=== PATIENT | female | born 1985 | race American Indian/Alaskan Native ===

== ENCOUNTER 2016-07-27 07:22 | Emergency (ER) | payer MEDICAID ==
[2016-07-27 07:44] VITALS: BP 116/72
--- NOTE | 2016-07-27 08:35 | Emergency Department Report ---
HPI - General Chief Complaint: Sore Throat Time Seen by Provider: 07/27/16 08:22 - HPI HPI: Patient here complaining of sore throat 2 days. Patient state pain.. Denies any drooling. Denies any fever or cough. She says she was seen at urgent care for the same thing last week and was placed on antibiotic. She said it didn't help her throat is worse. Denies any nausea or vomiting. Denies any fever or chills. Denies any difficulty swallowing. pt also reports that she has morning sickness and she is 2 months . Denies any abdominal, back pain , vaginal bleeding or discharge. Denies any urinary burning frequency or urgency. She reports that they did a strep test and culture at the urgent care and they were negative. ED Past Medical Hx - Past Medical History Previous Medical History?: No - Surgical History Past Surgical History?: No - Family History Family history: no significant - Social History Smoking Status: Never Smoker Substance Use Type: None ED Review of Systems ROS: Stated complaint: SORE THROAT Other details as noted in HPI Comment: All other systems reviewed and negative Constitutional: denies: chills, fever Eyes: denies: eye pain, eye discharge ENT: throat pain. denies: ear pain, congestion Respiratory: denies: cough, orthopnea, shortness of breath, SOB with exertion, SOB at rest, stridor, wheezing Cardiovascular: denies: chest pain, palpitations, edema, syncope Gastrointestinal: denies: abdominal pain, nausea, vomiting, diarrhea Genitourinary: denies: urgency, dysuria, frequency, hematuria, discharge Musculoskeletal: denies: back pain, arthralgia Skin: denies: rash Neurological: denies: headache, numbness, paresthesias, confusion, abnormal gait , vertigo Physical Exam - Physical Exam Vital Signs: Vital Signs 07/27/16 07:39 Temperature 98.4 F Pulse Rate 81 Respiratory 18 Rate Blood Pressure 116/72 O2 Sat by Pulse 99 Oximetry General: This is a 41-year-old female well-nourished well-developed in no acute distress Physical Exam: Head: Normocephalic atraumatic Mouth: Moist, no pharyngeal exudate or erythema. Uvula is midline and oral airway is patent. No gingival enlargement or dental tenderness. No facial swelling. No peritonsillar abscesses. Neck: Supple, no C-spine tenderness, no tracheal deviation. Nontender to palpate. no adenopathy Ears: Bilateral TMs congested without erythema .bilateral EAC without any redness swelling or drainage Eyes: Bilateral pupils equal and reactive to light, bilateral EOM intact. Bilateral sclera and conjunctiva without injection. Normal accommodation Nose: Mucosa moist, positive congestion no erythema. Positive clear drainage. maxillary and frontal sinus non-tender to palpate. Lungs: Lungs to auscultate bilaterally no rhonchi wheezes or rales. Normal work of breathing ABD: Soft, nontender to palpate in all quadrants, no guarding or rebound tenderness and no CVA tenderness. Normal bowel sounds in all quadrants extremity; No CCE. +2 pulses. No neurovascular compromise Cardiovascular: S1-S2, regular rate rhythm. No murmurs. Skin: clean Dry and intact no rash no lesions Psych: Normal mood and behavior ED Course Vital Signs 07/27/16 07:39 Temperature 98.4 F Pulse Rate 81 Respiratory 18 Rate Blood Pressure 116/72 O2 Sat by Pulse 99 Oximetry - Reevaluation(s) Reevaluation #1: 07/27/16 19:01 After evaluation of the patient's and diagnosis for rhinitis, patient decided to elope ED Medical Decision Making - Medical Decision Making ED course: I discussed with patient that she has upper respiratory tract infection specific to be viral in nature and antibiotic does not work with viral illness. Patient has normal scrotal exam. I also discussed with her that she needs to follow up with [employer] for her and if she doesn't have one I gave recommendations for [employer]. After leaving the room, to prepare Paperwork, nurse reports that patient eloped. Critical care attestation.: If time is entered above; I have spent that time in minutes in the direct care of this critically ill patient, excluding procedure time. ED Disposition Clinical Impression: Upper respiratory infection Qualifiers: URI type: unspecified URI Qualified Code(s): J06.9 - Acute upper respiratory infection, unspecified Pharyngitis Qualifiers: Pharyngitis/tonsillitis etiology: unspecified etiology Qualified Code(s): J02.9 - Acute pharyngitis, unspecified Disposition: ELOPED Is pt being admited?: No Does the pt Need Aspirin: No Condition: Stable Instructions: Upper Respiratory Infection (ED), Viral Syndrome (ED), Pharyngitis (ED)
== END 2016-07-27 09:10 | disposition left against medical advice (07) ==
LOC: ED 07:22
DX: O26.891 Other specified pregnancy related conditions, first trimester (principal); J06.9 Acute upper respiratory infection, unspecified; J02.9 Acute pharyngitis, unspecified; Z3A.00 Weeks of gestation of pregnancy not specified
CPT/HCPCS: 99281

== ENCOUNTER 2016-08-25 20:17 | Emergency (ER) | payer MEDICAID ==
--- NOTE | 2016-08-25 20:36 | Emergency Department Report ---
Chief Complaint: Vaginal Bleeding Stated Complaint: VAGINAL BLEEDING Time Seen by Provider: 08/25/16 20:32 - HPI History of Present Illness: pt states she is 12 weeks . PT states she needed to take a phenergan today for her nausea. PT states she slept all day and when she woke up she noticed L lower abd pain and vaginal bleeding - ROS Review of Systems: + nausea + vaginal bleeding - has not used any pads today - Exam Physical Exam: pt looks well, non toxic. abd soft, not ttp MSE screening note: Focused history and physical exam performed. Due to findings the following was ordered: labs, us ED Disposition for MSE Condition: Stable
[2016-08-25 20:38] VITALS: BP 137/87
[2016-08-25 21:12] LABS: Basophils % (Auto) 0.6 % (0.0-1.8); Eosinophils % (Auto) 2.4 % (0.0-4.3); Hematocrit 31.3 % (30.3-42.9); Hemoglobin 10.8 gm/dl (10.1-14.3); Mean Corpuscular HGB Conc 34 % (30-34); Mean Corpuscular Hemoglobin 27 pg (28-32); Mean Corpuscular Volume 79 fl (79-97); Platelet Count 335 K/mm3 (140-440); Red Blood Count 3.97 M/mm3 (3.65-5.03); Red Cell Distribution Width 16.2 % (13.2-15.2); White Blood Count 8.2 K/mm3 (4.5-11.0)
[2016-08-25 21:36] LABS: Albumin 3.1 g/dL (3.9-5); Albumin/Globulin Ratio 0.9 %; Alkaline Phosphatase 114 units/L (35-129); Anion Gap 17 mmol/L; Bilirubin,Total < 0.2 mg/dL (0.1-1.2); Blood Urea Nitrogen 4 mg/dL (7-17); Calcium 8.5 mg/dL (8.4-10.2); Carbon Dioxide 23 mmol/L (22-30); Chloride 98.5 mmol/L (98-107); Glucose 82 mg/dL (65-100); Potassium 3.5 mmol/L (3.6-5.0); Sodium 135 mmol/L (137-145); Total Protein 6.7 g/dL (6.3-8.2)
[2016-08-25 21:38] LABS: Alanine Aminotransferase < 5 units/L (7-56)
[2016-08-25 21:55] LABS: Bilirubin,Urine NEG (Negative); Blood,Urine MOD (Negative); Ketones,Urine NEG (Negative); Leukocyte Esterase,Urine NEG (Negative); Mucus,Urine FEW /HPF; Nitrite,Urine NEG (Negative); Protein,Urine <15 mg/dL mg/dL (Negative); RBC,Urine < 1.0 /HPF (0.0-6.0); Urobilinogen,Urine < 2.0 mg/dL (<2.0); WBC,Urine < 1.0 /HPF (0.0-6.0)
--- NOTE | 2016-08-25 22:13 | Ultrasound Report ---
FINAL REPORT EXAM: US OB \T\lt; = 14 WEEKS FETUS HISTORY: Vaginal bleeding . LMP 05/30/2016 with estimated age 12 weeks 3 days and EDC 03/06/2017 TECHNIQUE: Ultrasound of the pelvis using transabdominal imaging PRIORS: None. FINDINGS: Uterus: Uterus is enlarged in size and normal and homogeneous in echogenicity without focal fibroid formation. The uterus measures 13.8 x 7.5 x 10.1 cm in size. There is a single early viable intrauterine gestation noted. Dense placenta is located posteriorly without previa. Intrauterine gestation: There is a single intrauterine gestation identified with both a pole and yolk sac. heart rate is monitored at 163 BPM using M-mode doppler. Vernal-rump length measurement of 6.6 cm corresponds to estimated age 13 weeks 0 days with EDC 03/02/2017. Ovaries: Both ovaries appear normal in size and echogenicity with normal blood flow bilaterally. The right ovary measures 1.7 x 1.1 x 2.5 cm on the left ovary measures 2.6 x 2.1 x 2.6 cm in size. Other: There is no evidence for solid adnexal mass is seen. There is no free fluid in the cul-de-sac. IMPRESSION: Single intrauterine viable with an approximate age of 13 weeks 0 days.
[2016-08-25 22:16] LABS: INR TNR (0.87-1.13); Partial Thromboplastin Time TNR Sec. (24.2-36.6)
[2016-08-25 23:41] LABS: Partial Thromboplastin Time 37.3 Sec. (24.2-36.6)
--- NOTE | 2016-08-28 01:12 | ED Elopement Review ---
ED Pt Elopement review - Results review Lab results: Laboratory Tests 08/25/16 08/25/16 08/25/16 20:55 20:55 20:55 WBC 8.2 RBC 3.97 Hgb 10.8 Hct 31.3 MCV 79 MCH 27 L MCHC 34 RDW 16.2 H Plt Count 335 Lymph % (Auto) 44.9 H [place] % (Auto) 4.5 Eos % (Auto) 2.4 Baso % (Auto) 0.6 Lymph # 3.7 [place] # 0.4 Eos # 0.2 Baso # 0.1 Seg Neutrophils % 47.6 Seg Neutrophils # 3.9 PT TNR INR TNR APTT TNR Sodium 135 L Potassium 3.5 L Chloride 98.5 Carbon Dioxide 23 Anion Gap 17 BUN 4 L Creatinine 0.8 Estimated GFR > 60 BUN/Creatinine Ratio 5.00 Glucose 82 Calcium 8.5 Total Bilirubin < 0.2 AST 10 ALT < 5 L Alkaline Phosphatase 114 Total Protein 6.7 Albumin 3.1 L Albumin/Globulin Ratio 0.9 HCG, Quant Urine Color Urine Turbidity Urine pH Ur Specific [place] Urine Protein Urine Glucose (UA) Urine Ketones Urine Blood Urine Nitrite Urine Bilirubin Urine Urobilinogen Ur Leukocyte Esterase Urine WBC (Auto) Urine RBC (Auto) U Epithel Cells (Auto) Urine Mucus Blood Type 08/25/16 08/25/16 08/25/16 20:55 20:55 21:31 WBC RBC Hgb Hct MCV MCH MCHC RDW Plt Count Lymph % (Auto) [place] % (Auto) Eos % (Auto) Baso % (Auto) Lymph # [place] # Eos # Baso # Seg Neutrophils % Seg Neutrophils # PT INR APTT Sodium Potassium Chloride Carbon Dioxide Anion Gap BUN Creatinine Estimated GFR BUN/Creatinine Ratio Glucose Calcium Total Bilirubin AST ALT Alkaline Phosphatase Total Protein Albumin Albumin/Globulin Ratio HCG, Quant 98461 H Urine Color Straw Urine Turbidity Clear Urine pH 7.0 Ur Specific [place] 1.005 Urine Protein <15 mg/dl Urine Glucose (UA) Neg Urine Ketones Neg Urine Blood Mod Urine Nitrite Neg Urine Bilirubin Neg Urine Urobilinogen < 2.0 Ur Leukocyte Esterase Neg Urine WBC (Auto) < 1.0 Urine RBC (Auto) < 1.0 U Epithel Cells (Auto) 1.0 Urine Mucus Few Blood Type A POSITIVE 08/25/16 23:12 WBC RBC Hgb Hct MCV MCH MCHC RDW Plt Count Lymph % (Auto) [place] % (Auto) Eos % (Auto) Baso % (Auto) Lymph # [place] # Eos # Baso # Seg Neutrophils % Seg Neutrophils # PT 13.1 INR 1.00 APTT 37.3 H Sodium Potassium Chloride Carbon Dioxide Anion Gap BUN Creatinine Estimated GFR BUN/Creatinine Ratio Glucose Calcium Total Bilirubin AST ALT Alkaline Phosphatase Total Protein Albumin Albumin/Globulin Ratio HCG, Quant Urine Color Urine Turbidity Urine pH Ur Specific [place] Urine Protein Urine Glucose (UA) Urine Ketones Urine Blood Urine Nitrite Urine Bilirubin Urine Urobilinogen Ur Leukocyte Esterase Urine WBC (Auto) Urine RBC (Auto) U Epithel Cells (Auto) Urine Mucus Blood Type - Call Back decision Pt Call Back Decision: No action required
== END 2016-08-25 20:50 | disposition left against medical advice (07) ==
LOC: ED 20:17
DX: R11.0 Nausea (principal); R10.30 Lower abdominal pain, unspecified; N93.9 Abnormal uterine and vaginal bleeding, unspecified; Z53.21 Procedure and treatment not carried out due to patient leaving prior to being seen by health care provider
CPT/HCPCS: 36415; 76801; 80053; 81001; 84702; 85025; 85610; 85730; 86900; 86901

== ENCOUNTER 2016-12-13 22:47 | Outpatient (CLI) | payer MEDICAID ==
[2016-12-13] MEDS ORDERED: LACTATED RINGERS 1,000 ML IV ONE (23:02)
[2016-12-13] MEDS ORDERED: LACTATED RINGERS 1,000 ML ONE (23:03)
[2016-12-13 23:38] LABS: Bacteria,Urine 2+ /HPF (Negative); Bilirubin,Urine NEG (Negative); Blood,Urine NEG (Negative); Ketones,Urine NEG (Negative); Leukocyte Esterase,Urine NEG (Negative); Nitrite,Urine NEG (Negative); Protein,Urine <15 mg/dL mg/dL (Negative); Urobilinogen,Urine < 2.0 mg/dL (<2.0); WBC,Urine < 1.0 /HPF (0.0-6.0)
[2016-12-14] MEDS ORDERED: ZOFRAN IV ONE (00:21)
[2016-12-14 01:24] VITALS: BP 116/73
== END 2016-12-14 01:30 | disposition home or self-care (01) ==
LOC: TRG 22:47
PROVIDERS: ATTEND Obstetrics & Gynecology
DX: O47.02 False labor before 37 completed weeks of gestation, second trimester (principal); Z3A.27 27 weeks gestation of pregnancy
CPT/HCPCS: 81001; 96360; 96374; J2405; J7120

== ENCOUNTER 2017-01-15 09:59 | Outpatient (CLI) | payer MEDICAID ==
--- NOTE | 2017-01-15 12:14 | Ultrasound Report ---
RIGHT UPPER QUADRANT ULTRASOUND: HISTORY: Right upper quadrant abdominal pain. Technique: Transabdominal ultrasound imaging with Doppler interrogation. FINDINGS: The gallbladder is sonolucent with no evidence of stones, polyps or wall thickening. The common duct is normal in caliber. Images of the liver parenchyma, pancreas, right kidney and aorta are within normal limits. No perihepatic ascites. IMPRESSION: Unremarkable right upper quadrant ultrasound.
== END 2017-01-15 10:00 | disposition home or self-care (01) ==
LOC: US 09:59
PROVIDERS: ATTEND Obstetrics & Gynecology
DX: O26.893 Other specified pregnancy related conditions, third trimester (principal); K82.9 Disease of gallbladder, unspecified; O21.2 Late vomiting of pregnancy; Z3A.31 31 weeks gestation of pregnancy
CPT/HCPCS: 76705